=== PATIENT | male | born 1965 | race African-American/Black ===

== ENCOUNTER 2018-03-26 13:27 | Emergency (ER) | payer OTHER ==
[~2018-03-26] VITALS: Ht 167.6 cm; Wt 81.8 kg
[2018-03-26 14:11] VITALS: Ht 167.6 cm; Wt 81.8 kg
[2018-03-26] MEDS ORDERED: TYLENOL W/CODEI1 TAB PO (17:08)
[2018-03-26] MEDS ORDERED: VOLTAREN75 MG PO (17:08)
[2018-03-26] MEDS ORDERED: KEFLEX500 MG PO (17:08)
[2018-03-26 17:41] VITALS: BP 132/81
== END 2018-03-26 17:30 | disposition home or self-care (01) ==
LOC: D.ER 13:27
DX: S61.217A Laceration without foreign body of left little finger without damage to nail, initial encounter (principal); W23.0XXA Caught, crushed, jammed, or pinched between moving objects, initial encounter; Y93.89 Activity, other specified; Y92.89 Other specified places as the place of occurrence of the external cause

== ENCOUNTER 2018-03-28 13:08 | Emergency (ER) | payer OTHER ==
[~2018-03-28] VITALS: Ht 167.6 cm; Wt 84.1 kg
[~2018-03-28 13:08] MED LIST: KEFLEX500 MG PO; TYLENOL W/CODEI1 TAB PO; VOLTAREN75 MG PO
[2018-03-28 13:33] VITALS: Ht 167.6 cm; Wt 84.1 kg
[2018-03-28] MEDS ORDERED: HYDROCODON-ACE1 EAC7 PO (16:21)
[2018-03-28 16:45] VITALS: BP 130/85
== END 2018-03-28 16:45 | disposition home or self-care (01) ==
LOC: D.ER 13:08
DX: S62.637 Displaced fracture of distal phalanx of left little finger (principal); W23.0XXD Caught, crushed, jammed, or pinched between moving objects, subsequent encounter